=== PATIENT | female | born 1945 | race Caucasian/White ===

== ENCOUNTER 2021-04-10 14:05 | Emergency (ER) | payer MEDICARE, OTHER ==
--- NOTE | 2021-04-10 14:11 | ERPHSYRPT ---
- History of Present Illness Time Seen by Provider: 04/10/21 14:11 Source: patient, family Exam Limitations: no limitations Physician History: This is a 76-year-old white female with a history of hypertension, COPD and elevated cholesterol. Her primary care physician is Dr. Rivero. She has felt increasingly weak over the last several days. A couple weeks ago patient was treated for vaginal yeast infection. She is now having some dysuria symptoms. She has no abdominal pain. She has had no nausea vomiting or diarrhea. She has no chest pain and she is not short of breath. Her primary complaint is the dysuria and the weakness. She has not had fevers or chills. She has not had any exposure to any individuals with similar symptoms or with viral illness. Timing/Duration: day(s) (Few) Severity: moderate Associated Symptoms: weakness, No nausea, No vomiting, No abdominal pain, No s hortness of breath, No cough, No chest pain, No fever Allergies/Adverse Reactions: No Known Drug Allergies Allergy (Unverified 10/28/13 11:54) Home Medications: Albuterol/Ipratropium cc [Combivent Inhaler COMMON CANISTER] 1 puff IH QID 1 12/29/12 [History] Aspirin EC 81 mg [Ecotrin 81 mg] 81 mg PO DAILY 10/28/13 [History] Benazepril/Hydrochlorothiazide [Benazepril-Hctz 10-12.5 mg Tab] 1 each PO DAILY 10/28/13 [History] Budesonide/Formoterol Fumarate [Symbicort 160-4.5 Mcg Inhaler] 6 gm IH BID 10/28/13 [History] Fluoxetine HCl 20 mg [Prozac 20 MG] 20 mg PO DAILY 10/28/13 [History] Metoprolol Tartrate 25 mg [Lopressor 25MG Tab] 25 tab PO DAILY 10/28/13 [History] Hx Tetanus, Diphtheria Vaccination/Date Given: Yes Hx Influenza Vaccination/Date Given: Yes (2012) Hx Pneumococcal Vaccination/Date Given: Yes (2009) Travel Risk - International Travel Have you traveled outside of the country in past 3 weeks: No - Coronavirus Screening Are you exhibiting any of the following symptoms?: No Close contact with a COVID-19 positive Pt in past 14-21 Days: No - Review of Systems Constitutional: Weakness, No Fever, No Chills Eyes: No Symptoms Ears, Nose, & Throat: No Symptoms Respiratory: No Symptoms Cardiac: No Symptoms Abdominal/Gastrointestinal: No Symptoms Genitourinary Symptoms: Dysuria Musculoskeletal: No Symptoms Skin: No Symptoms Neurological: No Symptoms Psychological: No Symptoms Endocrine: No Symptoms Hematologic/Lymphatic: No Symptoms Immunological/Allergic: No Symptoms All Other Systems: Reviewed and Negative - Past Medical History Pertinent Past Medical History: Yes Neurological History: No Pertinent History ENT History: No Pertinent History Cardiac History: High Cholesterol, Hypertension Respiratory History: COPD Endocrine Medical History: No Pertinent History Musculoskeletal History: Arthritis, Osteoporosis GI Medical History: No Pertinent History History: No Pertinent History Psycho-Social History: Depression Female Reproductive Disorders: No Pertinent History - Past Surgical History Past Surgical History: Yes Neuro Surgical History: No Pertinent History Cardiac: No Pertinent History Respiratory: No Pertinent History Gastrointestinal: Cholecystectomy Genitourinary: No Pertinent History Musculoskeletal: Orthopedic Surgery Female Surgical History: No Pertinent History - Social History Smoking Status: Former smoker Exposure to second hand smoke: No Drug Use: none - Nursing Vital Signs Nursing Vital Signs: Initial Vital Signs Temperature 97.8 F 04/10/21 14:11 Pulse Rate 90 04/10/21 14:11 Blood Pressure 177/90 04/10/21 14:11 O2 Sat by Pulse Oximetry 93 L 04/10/21 14:11 Pain Scale Pain Intensity 0 - Physical Exam General Appearance: no apparent distress, alert, anxiety Eye Exam: PERRL/EOMI, eyes nml inspection Ears, Nose, Throat Exam: normal ENT inspection, moist mucous membranes Neck Exam: normal inspection, non-tender, supple, full range of motion Respiratory Exam: normal breath sounds, lungs clear, airway intact, No chest tenderness, No respiratory distress Cardiovascular Exam: regular rate/rhythm, normal heart sounds, normal peripheral pulses Gastrointestinal/Abdomen Exam: soft, normal bowel sounds, No tenderness Pelvic Exam: not done Rectal Exam: not done Back Exam: normal inspection, normal range of motion, No CVA tenderness, No vertebral tenderness Extremity Exam: normal inspection, normal range of motion, pelvis stable Neurologic Exam: alert, oriented x 3, cooperative, 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 There is no comparison EKG available.) Ordered Tests: Active Orders 24 hr Category Date Time Status EKG-ER Only STAT Care 04/10/21 14:50 Active IV Insertion STAT Care 04/10/21 14:50 Active ABDOMEN AND PELVIS W/0 CONTRAS [CT] Stat Exams 04/10/21 17:11 Taken CBC W DIFF Stat Lab 04/10/21 14:55 Completed CMP Stat Lab 04/10/21 14:55 Completed Lactic Acid Stat Lab 04/10/21 15:36 Completed TROPONIN Q3H Lab 04/10/21 14:55 Completed TROPONIN Q3H Lab 04/10/21 18:00 Ordered TROPONIN Q3H Lab 04/10/21 21:00 Ordered TROPONIN Q3H Lab 04/11/21 00:00 Ordered TROPONIN Q3H Lab 04/11/21 03:00 Ordered UA W/RFX UR CULTURE Stat Lab 04/10/21 14:54 Completed Medication Summary Discontinued Medications Generic Name Dose Route Start Last Admin Trade Name Freq PRN Reason Stop Dose Admin Sodium Chloride 1,000 mls @ 999 mls/hr 04/10/21 14:50 04/10/21 16:15 Sodium Chloride 0.9% 1000 Ml IV 04/10/21 15:50 Infused .Q1H1M STA Infusion Sodium Chloride Confirm 04/10/21 14:54 Sodium Chloride 0.9% 1000 Ml Administered 04/10/21 14:55 Dose 1,000 mls @ ud .ROUTE .STK-MED ONE Ondansetron HCl 4 mg 04/10/21 16:10 04/10/21 16:13 Zofran 4 Mg/2 Ml Vial IV 04/10/21 16:11 4 mg STAT ONE Administration Ondansetron HCl Confirm 04/10/21 16:11 Zofran 4 Mg/2 Ml Vial Administered 04/10/21 16:12 Dose 4 mg .ROUTE .STK-MED ONE Pantoprazole Sodium 40 mg 04/10/21 16:10 04/10/21 16:14 Protonix 40 Mg Iv IV 04/10/21 16:11 40 mg STAT ONE Administration Pantoprazole Sodium Confirm 04/10/21 16:11 Protonix 40 Mg Iv Administered 04/10/21 16:12 Dose 40 mg IV .STK-MED ONE Lab/Rad Data: Laboratory Result Diagrams 04/10/21 14:55 04/10/21 14:55 Laboratory Results 04/10/21 04/10/21 04/10/21 Range/Units 15:36 14:55 14:55 WBC (4.0-10.5) K/mm3 RBC (4.1-5.4) M/mm3 Hgb (12.0-16.0) gm/dl Hct (35-47) % MCV (78-100) fl MCH (26-32) pg MCHC (32-36) g/dl RDW (11.5-14.0) % Plt Count (150-450) K/mm3 MPV (7.5-11.0) fl Gran % (36.0-66.0) % Eos # (Auto) (0-0.5) Absolute Lymphs (auto) (1.0-4.6) Absolute Monos (auto) (0.0-1.3) Lymphocytes % (24.0-44.0) % Monocytes % (0.0-12.0) % Eosinophils % (0.00-5.0) % Basophils % (0.0-0.4) % Absolute Granulocytes (1.4-6.9) Basophils # (0-0.4) Sodium 133 L (137-145) mmol/L Potassium 4.0 (3.5-5.1) mmol/L Chloride 96 L (98-107) mmol/L Carbon Dioxide 26 (22-30) mmol/L Anion Gap 14.8 (5-15) MEQ/L BUN 9 (7-17) mg/dL Creatinine 0.60 (0.52-1.04) mg/dL Estimated GFR > 60.0 ML/MIN Glucose 96 (74-106) mg/dL Lactic Acid 1.1 (0.4-2.0) Calcium 9.2 (8.4-10.2) mg/dL Total Bilirubin 0.70 (0.2-1.3) mg/dL AST 25 (14-36) U/L ALT 22 (0-35) U/L Alkaline Phosphatase 64 (38-126) U/L Troponin I < 0.012 (0.000-0.034) ng/mL Serum Total Protein 8.3 H (6.3-8.2) g/dL Albumin 4.6 (3.5-5.0) g/dL Urine Color (YELLOW) Urine Appearance (CLEAR) Urine pH (5-6) Ur Specific [place] (1.005-1.025) Urine Protein (Negative) Urine Ketones (NEGATIVE) Urine Blood (0-5) Jaime/ul Urine Nitrite (NEGATIVE) Urine Bilirubin (NEGATIVE) Urine Urobilinogen (0-1) mg/dL Ur Leukocyte Esterase (NEGATIVE) Urine WBC (Auto) (0-5) /HPF Urine RBC (Auto) (0-2) /HPF U Epithel Cells (Auto) (FEW) /HPF Urine Bacteria (Auto) (NEGATIVE) /HPF Urine Mucus (Auto) (NEGATIVE) /HPF Urine Culture Reflexed (NO) Urine Glucose (NEGATIVE) mg/dL 04/10/21 04/10/21 Range/Units 14:55 14:54 WBC 6.5 (4.0-10.5) K/mm3 RBC 4.38 (4.1-5.4) M/mm3 Hgb 13.3 (12.0-16.0) gm/dl Hct 40.8 (35-47) % MCV 93.2 (78-100) fl MCH 30.4 (26-32) pg MCHC 32.6 (32-36) g/dl RDW 12.6 (11.5-14.0) % Plt Count 262 (150-450) K/mm3 MPV 10.1 (7.5-11.0) fl Gran % 65.6 (36.0-66.0) % Eos # (Auto) 0.11 (0-0.5) Absolute Lymphs (auto) 1.44 (1.0-4.6) Absolute Monos (auto) 0.66 (0.0-1.3) Lymphocytes % 22.2 L (24.0-44.0) % Monocytes % 10.2 (0.0-12.0) % Eosinophils % 1.7 (0.00-5.0) % Basophils % 0.3 (0.0-0.4) % Absolute Granulocytes 4.27 (1.4-6.9) Basophils # 0.02 (0-0.4) Sodium (137-145) mmol/L Potassium (3.5-5.1) mmol/L Chloride (98-107) mmol/L Carbon Dioxide (22-30) mmol/L Anion Gap (5-15) MEQ/L BUN (7-17) mg/dL Creatinine (0.52-1.04) mg/dL Estimated GFR ML/MIN Glucose (74-106) mg/dL Lactic Acid (0.4-2.0) Calcium (8.4-10.2) mg/dL Total Bilirubin (0.2-1.3) mg/dL AST (14-36) U/L ALT (0-35) U/L Alkaline Phosphatase (38-126) U/L Troponin I (0.000-0.034) ng/mL Serum Total Protein (6.3-8.2) g/dL Albumin (3.5-5.0) g/dL Urine Color YELLOW (YELLOW) Urine Appearance CLEAR (CLEAR) Urine pH 6.0 (5-6) Ur Specific [place] 1.011 (1.005-1.025) Urine Protein NEGATIVE (Negative) Urine Ketones NEGATIVE (NEGATIVE) Urine Blood LARGE (0-5) Jaime/ul Urine Nitrite NEGATIVE (NEGATIVE) Urine Bilirubin NEGATIVE (NEGATIVE) Urine Urobilinogen NEGATIVE (0-1) mg/dL Ur Leukocyte Esterase NEGATIVE (NEGATIVE) Urine WBC (Auto) 0-2 (0-5) /HPF Urine RBC (Auto) 16-25 (0-2) /HPF U Epithel Cells (Auto) RARE (FEW) /HPF Urine Bacteria (Auto) RARE (NEGATIVE) /HPF Urine Mucus (Auto) SLIGHT (NEGATIVE) /HPF Urine Culture Reflexed NO (NO) Urine Glucose NEGATIVE (NEGATIVE) mg/dL - Progress Progress Note: 04/10/21 18:38 CAT scan of the abdomen pelvis shows a 1.7 cm left renal cyst and a 3.0 cm distal abdominal aortic aneurysm. Remaining of the CAT scan of the abdomen pelvis without contrast negative Counseled pt/family regarding: lab results, diagnosis, need for follow-up, rad results - Departure Departure Disposition: Home Clinical Impression: Weakness, Vaginal itching Condition: Stable Critical Care Time: No Referrals: CHADWICK RIVERO [Primary Care Provider] - Additional Instructions: Drink plenty of fluids. Follow-up with Dr. Rivero in his office tomorrow by phone to make arrangements for a follow-up appointment. Prescriptions: Ondansetron ODT 4 MG [Zofran Odt 4 mg] 4 mg PO Q6H PRN PRN #10 tab.rapdis PRN Reason: Vomiting
[2021-04-10] MEDS ORDERED: Sodium Chloride 0.9% 1000 ML 1,000 ML IV STA (14:50)
[2021-04-10] MEDS ORDERED: Sodium Chloride 0.9% 1000 ML 1,000 ML ONE (14:54)
[2021-04-10 15:06] LABS: Absolute Neutrophil Ct (ANC) 4.27 (1.4-6.9); BASOPHIL % 0.3 % (0.0-0.4); Basophil (Absolute #) 0.02 (0-0.4); Eosinophil % 1.7 % (0.00-5.0); Eosinophil (Absolute #) 0.11 (0-0.5); Hematocrit 40.8 % (35-47); Hemoglobin 13.3 gm/dl (12.0-16.0); Lymphocyte (Absolute #) 1.44 (1.0-4.6); Lymphocytes % 22.2 % (24.0-44.0); Mean Cell Volume 93.2 fl (78-100); Mean Corpuscular Hemoglobin 30.4 pg (26-32); Mean Corpuscular Hgb Concent. 32.6 g/dl (32-36); Mean Platelet Volume 10.1 fl (7.5-11.0); Monocyte (Absolute #) 0.66 (0.0-1.3); Monocytes % 10.2 % (0.0-12.0); Neutrophil % 65.6 % (36.0-66.0); Platelet Count 262 K/mm3 (150-450); Red Blood Count 4.38 M/mm3 (4.1-5.4); Red Cell Distribution Width 12.6 % (11.5-14.0); White Blood Count 6.5 K/mm3 (4.0-10.5)
[2021-04-10 15:08] LABS: Appearance CLEAR (CLEAR); Bacteria RARE /HPF (NEGATIVE); Bilirubin NEGATIVE (NEGATIVE); Blood LARGE Ery/ul (0-5); Epithelial Cells RARE /HPF (FEW); Glucose NEGATIVE (NEGATIVE); Ketones NEGATIVE (NEGATIVE); Leukocyte Esterase NEGATIVE (NEGATIVE); Mucus SLIGHT /HPF (NEGATIVE); Nitrite NEGATIVE (NEGATIVE); Protein,Urine Dip NEGATIVE (Negative); Specific Gravity 1.011 (1.005-1.025); Urobilinogen NEGATIVE mg/dL (0-1); WBC 0-2 /HPF (0-5)
[2021-04-10 15:16] LABS: ALBUMIN 4.6 g/dL (3.5-5.0); ALKALINE PHOSPHATASE 64 U/L (38-126); ANION GAP 14.8 MEQ/L (5-15); BLOOD UREA NITROGEN 9 mg/dL (7-17); CHLORIDE 96 mmol/L (98-107); Calcium 9.2 mg/dL (8.4-10.2); Carbon Dioxide 26 mmol/L (22-30); EST GLOMERULAR FILTRATION RATE > 60.0 ML/MIN; Glucose 96 mg/dL (74-106); SGOT/AST 25 U/L (14-36); SGPT/ALT 22 U/L (0-35); SODIUM 133 mmol/L (137-145); Total Protein 8.3 g/dL (6.3-8.2)
[2021-04-10] MEDS ORDERED: PROTONIX 40 MG IV IV ONE ×2 (16:10→16:11)
[2021-04-10] MEDS ORDERED: Zofran 4 MG/2 ML VIAL IV ONE (16:10)
[2021-04-10] MEDS ORDERED: Zofran 4 MG/2 ML VIAL ONE (16:11)
[2021-04-10 18:53] VITALS: BP 149/63; PULSE 68; O2SAT 94
--- NOTE | 2021-04-11 08:56 | XRAY ---
Indication: Hematuria. Pelvic pressure. Multiple contiguous axial images obtained through the abdomen and pelvis without contrast. Comparison: None Lung bases demonstrates minimal fibrosis/scarring and tiny left posterior gutter calcified granuloma. No infiltrate or effusion. Heart is not enlarged. Noncontrasted stomach and bowel loops appear nonobstructed. Normal appendix. Previous cholecystectomy. No free fluid/air. Left mid kidney demonstrates 1.7 cm cortical cyst. Remaining liver, pancreas, spleen, adrenal glands, kidneys, ureters, bladder, and uterus unremarkable for noncontrast exam. Moderate scattered vascular calcifications with 3 cm fusiform distal AAA. Osseous structures intact with mild osteopenia and mild/moderate degenerative changes throughout the thoracolumbar spine. No ventral or inguinal hernias. Impression: 1. 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 2. Left renal cyst. 3. Remaining CT abdomen/pelvis without contrast exam is negative.
== END 2021-04-10 18:55 | disposition home or self-care (01) ==
LOC: ED 14:05
DX: R53.1 Weakness (principal); L29.8 Other pruritus
CPT/HCPCS: 36000; 36415; 74176; 80053; 81001; 83605; 84484; 85025; 93005; 96360; 96374; 96375; 99284; J2405

== ENCOUNTER 2022-07-07 07:36 | Emergency (ER) | payer MEDICARE, OTHER ==
[2022-07-07 08:15] VITALS: O2SAT 96
[2022-07-07 08:26] LABS: Absolute Neutrophil Ct (ANC) 5.21 x10^3/uL (1.4-6.9); Basophil (Absolute #) 0.02 x10^3/uL (0-0.4); Eosinophil % 0.7 % (0.00-5.0); Eosinophil (Absolute #) 0.05 x10^3/uL (0-0.5); Hematocrit 40.1 % (35-47); Hemoglobin 13.4 g/dL (12.0-16.0); Lymphocyte (Absolute #) 0.84 x10^3/uL (1.0-4.6); Mean Cell Volume 92.2 fL (78-100); Mean Corpuscular Hemoglobin 30.8 pg (26-32); Mean Corpuscular Hgb Concent. 33.4 g/dL (32-36); Mean Platelet Volume 9.5 fL (7.5-11.0); Monocyte (Absolute #) 0.84 x10^3/uL (0.0-1.3); Neutrophil % 74.7 % (36.0-66.0); Platelet Count 214 x10^3/uL (150-450); Red Blood Count 4.35 x10^6/uL (4.1-5.4); Red Cell Distribution Width 12.6 % (11.5-14.0)
--- NOTE | 2022-07-07 08:26 | ERPHSYRPT ---
- History of Present Illness Source: patient Exam Limitations: no limitations Patient Subjective Stated Complaint: C/O cough with SOB upon exertion since yesterday Triage Nursing Assessment: Patient ambulated back to ED with some SOB noted with exertion. Patient is alert and oriented. No cough noted during assessment. Patient skin is warm and dry. Lungs clear and slightly diminished in the bases. Physician History: 77 yo wf w dyspnea x 2days. Pt has a mildly productive cough w a h/o COPD. She smoked 1ppd until 10 years ago and currently vapes. Dyspnea is mainly upon exertion. She denies chest pain/fever/coryza/N/V/D/melena/hematochezia. Timing/Duration: other (2 days) Severity of Dyspnea-Max: moderate Severity of Dyspnea-Current: mild Possible Cause: occasional episodes Modifying Factors: Improves With: activity Associated Symptoms: cough, productive cough, No chest pain/discomfort, No edema, No fever, No insomnia, No loss of appetite, No lightheadedness, No wheezing, No weakness, No ankle swelling, No chills, No hemoptysis, No calf pain, No dizziness, No heaviness, No heart racing, No lightheadedness, No leg swelling, No muscle spasms feet, No muscle spasms hands, No painful breathing, No sweating, No tightness, No tingling face Allergies/Adverse Reactions: No Known Drug Allergies Allergy (Verified 07/07/22 08:02) Home Medications: Albuterol/Ipratropium cc [Combivent Inhaler COMMON CANISTER] 1 puff IH QID 10/28/13 [History] Aspirin EC 81 mg [Ecotrin 81 mg] 81 mg PO DAILY 10/28/13 [History] Benazepril/Hydrochlorothiazide [Benazepril-Hctz 10-12.5 mg Tab] 1 each PO DAILY 10/28/13 [History] Budesonide/Formoterol Fumarate [Symbicort 160-4.5 Mcg Inhaler] 6 gm IH BID 10/28/13 [History] Fluoxetine HCl 20 mg [Prozac 20 MG] 20 mg PO DAILY 10/28/13 [History] Metoprolol Tartrate 25 mg [Lopressor 25MG Tab] 25 tab PO DAILY 10/28/13 [History] Hx Tetanus, Diphtheria Vaccination/Date Given: Yes Hx Influenza Vaccination/Date Given: No Hx Pneumococcal Vaccination/Date Given: No Immunizations Up to Date: Yes Travel Risk - International Travel Have you traveled outside of the country in past 3 weeks: No - Coronavirus Screening Are you exhibiting any of the following symptoms?: Yes Symptoms: Cough: New Onset, Shortness of Breath, Headaches/Body Aches/Fatigue Close contact with a COVID-19 positive Pt in past 14-21 Days: No - Vaccine Status Have you recieved a Covid-19 vaccination: Yes 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: [employer] - Vaccination Dates Date of 2cond Vaccination (if applicable): 03/03/21 - Review of Systems Constitutional: No Symptoms Eyes: No Symptoms Ears, Nose, & Throat: No Symptoms Respiratory: No Symptoms, Cough, Dyspnea on Exertion (BACON) Cardiac: No Symptoms Abdominal/Gastrointestinal: No Symptoms Genitourinary Symptoms: No Symptoms Musculoskeletal: No Symptoms Skin: No Symptoms Neurological: No Symptoms Psychological: No Symptoms Endocrine: No Symptoms Hematologic/Lymphatic: No Symptoms Immunological/Allergic: No Symptoms - Past Medical History Pertinent Past Medical History: Yes Neurological History: No Pertinent History ENT History: No Pertinent History Cardiac History: High Cholesterol, Hypertension Respiratory History: COPD Endocrine Medical History: No Pertinent History Musculoskeletal History: Arthritis, Osteoporosis GI Medical History: No Pertinent History History: No Pertinent History Psycho-Social History: Depression Female Reproductive Disorders: No Pertinent History - Past Surgical History Past Surgical History: Yes Neuro Surgical History: No Pertinent History Cardiac: No Pertinent History Respiratory: No Pertinent History Gastrointestinal: Cholecystectomy Genitourinary: No Pertinent History Musculoskeletal: Orthopedic Surgery Female Surgical History: No Pertinent History - Social History Smoking Status: Former smoker Exposure to second hand smoke: No Drug Use: none Patient Lives Alone: No (Daughter) Significant Family History: no pertinent family hx - Nursing Vital Signs Nursing Vital Signs: Initial Vital Signs Temperature 98.6 F 07/07/22 07:38 Pulse Rate 84 07/07/22 07:38 Respiratory Rate 17 07/07/22 07:38 Blood Pressure 157/93 07/07/22 07:38 O2 Sat by Pulse Oximetry 96 07/07/22 07:38 Pain Scale Pain Intensity 0 Hypertensive - Physical Exam General Appearance: no apparent distress Eye Exam: PERRL/EOMI, eyes nml inspection Ears, Nose, Throat Exam: hearing grossly normal, normal ENT inspection, normal pharynx Neck Exam: normal inspection, non-tender, supple, full range of motion, No Brudzinski, No Kernig's, No meningismus, No carotid bruit Respiratory Exam: lungs clear, airway intact, crackles/rales (Faint rales at bases B) Cardiovascular/Chest Exam: normal heart sounds, regular rate/rhythm, normal peripheral pulses, No murmur Abdominal/Gastrointestinal Exam: soft, normal bowel sounds, No tenderness Extremity Exam: non-tender, normal range of motion, normal inspection, normal capillary refill, No no calf tenderness Peripheral Pulses Exam: carotid (R): 2+, carotid (L): 2+ Neurologic Exam: alert, oriented x 3, cooperative, 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, normal mood/affect, nml cerebellar function, nml station & gait, sensation nml, No motor deficits, No sensory deficit Skin Exam: normal color, warm, dry, No rash Lymphatic Exam: No adenopathy SpO2 Interpretation: normal SpO2: 96 O2 Delivery: Room Air - Course Nursing assessment & vital signs reviewed: Yes EKG Interpreted by Me: RATE (NSR/Rate75/Poor R wave progression V2-V3/No acute ST changes) Ordered Tests: Active Orders 24 hr Category Date Time Status EKG-ER Only STAT Care 07/07/22 08:14 Completed CHEST 1 VIEW (PORTABLE) Stat Exams 07/07/22 08:30 Taken CBC W DIFF Stat Lab 07/07/22 08:14 Completed CMP Stat Lab 07/07/22 08:28 Completed NT PRO BNP Stat Lab 07/07/22 08:28 Completed PROTIME WITH INR Stat Lab 07/07/22 08:28 Completed PTT Stat Lab 07/07/22 08:28 Completed TROPONIN Q4H Lab 07/07/22 08:28 Completed Lab/Rad Data: Laboratory Result Diagrams 07/07/22 08:14 07/07/22 08:28 Laboratory Results 07/07/22 07/07/22 07/07/22 Range/Units 08:28 08:28 08:28 WBC (4.0-10.5) x10^3/uL RBC (4.1-5.4) x10^6/uL Hgb (12.0-16.0) g/dL Hct (35-47) % MCV (78-100) fL MCH (26-32) pg MCHC (32-36) g/dL RDW (11.5-14.0) % Plt Count (150-450) x10^3/uL MPV (7.5-11.0) fL Gran % (36.0-66.0) % Immature Gran % (Auto) (0.00-0.4) % Nucleat RBC Rel Count (0.00-0.1) % Eos # (Auto) (0-0.5) x10^3/uL Immature Gran # (Auto) (0.00-0.03) x10^3u/L Absolute Lymphs (auto) (1.0-4.6) x10^3/uL Absolute Monos (auto) (0.0-1.3) x10^3/uL Absolute Nucleated RBC (0.00-0.01) x10^3u/L Lymphocytes % (24.0-44.0) % Monocytes % (0.0-12.0) % Eosinophils % (0.00-5.0) % Basophils % (0.0-0.4) % Absolute Granulocytes (1.4-6.9) x10^3/uL Basophils # (0-0.4) x10^3/uL PT 10.9 (9.4-12.5) SECONDS INR 1.03 (0.8-3.0) APTT 28.8 (25.1-36.5) SECONDS Sodium 131 L (137-145) mmol/L Potassium 4.1 (3.5-5.1) mmol/L Chloride 94 L (98-107) mmol/L Carbon Dioxide 27 (22-30) mmol/L Anion Gap 13.1 (5-15) MEQ/L BUN 11 (7-17) mg/dL Creatinine 0.61 (0.52-1.04) mg/dL Estimated GFR > 60.0 ML/MIN Glucose 119 H (74-106) mg/dL Calcium 9.4 (8.4-10.2) mg/dL Total Bilirubin 1.20 (0.2-1.3) mg/dL AST 27 (14-36) U/L ALT 20 (0-35) U/L Alkaline Phosphatase 73 (38-126) U/L Troponin I < 0.012 (0.000-0.034) ng/mL NT-Pro-B Natriuret Pep 289 (0-1800) pg/mL Serum Total Protein 8.4 H (6.3-8.2) g/dL Albumin 4.7 (3.5-5.0) g/dL Influenza Type A Ag (NEGATIVE) Influenza Type B Ag (NEGATIVE) RSV (PCR) (Negative) SARS-CoV-2 (PCR) (NEGATIVE) 07/07/22 07/07/22 Range/Units 08:28 08:14 WBC 7.0 (4.0-10.5) x10^3/uL RBC 4.35 (4.1-5.4) x10^6/uL Hgb 13.4 (12.0-16.0) g/dL Hct 40.1 (35-47) % MCV 92.2 (78-100) fL MCH 30.8 (26-32) pg MCHC 33.4 (32-36) g/dL RDW 12.6 (11.5-14.0) % Plt Count 214 (150-450) x10^3/uL MPV 9.5 (7.5-11.0) fL Gran % 74.7 H (36.0-66.0) % Immature Gran % (Auto) 0.3 (0.00-0.4) % Nucleat RBC Rel Count 0.0 (0.00-0.1) % Eos # (Auto) 0.05 (0-0.5) x10^3/uL Immature Gran # (Auto) 0.02 (0.00-0.03) x10^3u/L Absolute Lymphs (auto) 0.84 L (1.0-4.6) x10^3/uL Absolute Monos (auto) 0.84 (0.0-1.3) x10^3/uL Absolute Nucleated RBC 0.00 (0.00-0.01) x10^3u/L Lymphocytes % 12.0 L (24.0-44.0) % Monocytes % 12.0 (0.0-12.0) % Eosinophils % 0.7 (0.00-5.0) % Basophils % 0.3 (0.0-0.4) % Absolute Granulocytes 5.21 (1.4-6.9) x10^3/uL Basophils # 0.02 (0-0.4) x10^3/uL PT (9.4-12.5) SECONDS INR (0.8-3.0) APTT (25.1-36.5) SECONDS Sodium (137-145) mmol/L Potassium (3.5-5.1) mmol/L Chloride (98-107) mmol/L Carbon Dioxide (22-30) mmol/L Anion Gap (5-15) MEQ/L BUN (7-17) mg/dL Creatinine (0.52-1.04) mg/dL Estimated GFR ML/MIN Glucose (74-106) mg/dL Calcium (8.4-10.2) mg/dL Total Bilirubin (0.2-1.3) mg/dL AST (14-36) U/L ALT (0-35) U/L Alkaline Phosphatase (38-126) U/L Troponin I (0.000-0.034) ng/mL NT-Pro-B Natriuret Pep (0-1800) pg/mL Serum Total Protein (6.3-8.2) g/dL Albumin (3.5-5.0) g/dL Influenza Type A Ag NEGATIVE (NEGATIVE) Influenza Type B Ag NEGATIVE (NEGATIVE) RSV (PCR) NEGATIVE (Negative) SARS-CoV-2 (PCR) POSITIVE A (NEGATIVE) - Progress Air Movement: good Counseled pt/family regarding: lab results, diagnosis, need for follow-up, rad results - Departure Departure Disposition: Home Clinical Impression: COVID-19 Condition: Stable Critical Care Time: No Referrals: CHADWICK WYMAN [Primary Care Provider] - Follow up/PCP as directed Instructions: Cough, Adult (DC), COVID-19 (DC) Additional Instructions: Quarantine for 5 days Vitamin D 5000units a day Start Paxlovid for 5 days Get a pulse oximeter and monitor oxygen saturation 2-3 times a day Return to ER for persistent oxygen saturation less than 90% Follow up with your family MD in 2-3 days Decadron once a day for 5 days Prescriptions: Dexamethasone 4 mg [Decadron 4 MG] 4 mg PO DAILY #5 tablet Nirmatrelvir/Ritonavir [Paxlovid 300-100 mg Pack (Eua)] 1 each PO BID 5 Days #30
[2022-07-07 08:39] LABS: INR 1.03 (0.8-3.0); PROTIME 10.9 SECONDS (9.4-12.5); PTT 28.8 SECONDS (25.1-36.5)
[2022-07-07 08:46] LABS: ALBUMIN 4.7 g/dL (3.5-5.0); ALKALINE PHOSPHATASE 73 U/L (38-126); ANION GAP 13.1 MEQ/L (5-15); BLOOD UREA NITROGEN 11 mg/dL (7-17); CHLORIDE 94 mmol/L (98-107); Calcium 9.4 mg/dL (8.4-10.2); Carbon Dioxide 27 mmol/L (22-30); Creatinine 1 0.61 mg/dL (0.52-1.04); EST GLOMERULAR FILTRATION RATE > 60.0 ML/MIN; Glucose 119 mg/dL (74-106); NT PRO BNP 289 pg/mL (0-1800); Potassium 4.1 mmol/L (3.5-5.1); SGOT/AST 27 U/L (14-36); SGPT/ALT 20 U/L (0-35); SODIUM 131 mmol/L (137-145); Total Protein 8.4 g/dL (6.3-8.2)
[2022-07-07 08:59] LABS: INFLUENZA A NEGATIVE (NEGATIVE); INFLUENZA B NEGATIVE (NEGATIVE); RESPIRATORY SYNCTIAL VIRUS NEGATIVE (Negative)
[2022-07-07 09:06] LABS: SARS-CoV-2 Xpert Express POSITIVE (NEGATIVE)
[2022-07-07 09:11] VITALS: BP 159/72; PULSE 75
--- NOTE | 2022-07-07 19:33 | XRAY ---
Indication: Cough. Dyspnea. History of COPD. Comparison: December 28, 2010 Portable chest remains hyperinflated and clear with incidental tiny calcified granulomas. Heart now borderline enlarged with tortuous descending aorta. Bony thorax intact with osteopenia, degenerative changes, and old left rib fractures. Impression: Nonacute hyperinflated chest with chronic features.
== END 2022-07-07 09:20 | disposition home or self-care (01) ==
LOC: ED 07:36
DX: U07.1 COVID-19 (principal); R06.00 Dyspnea, unspecified; R05.9 Cough, unspecified; E78.5 Hyperlipidemia, unspecified; I10 Essential (primary) hypertension; J44.9 Chronic obstructive pulmonary disease, unspecified; Z79.899 Other long term (current) drug therapy; Z79.52 Long term (current) use of systemic steroids
CPT/HCPCS: 0241U; 36415; 71045; 80053; 83880; 84484; 85025; 85610; 85730; 93005; 99283

== ENCOUNTER 2025-10-07 21:44 | Emergency (ER) | payer MEDICARE, OTHER ==
[2025-10-07 21:58] VITALS: TEMP 97.4; O2SAT 96
[2025-10-07] MEDS ORDERED: DELTASONE 20 MG ONE (23:58)
[2025-10-07] MEDS: DELTASONE 20 MG PO ONE (23:58)
[2025-10-08] MEDS ORDERED: DUONEB 0.5-3 MG/3 ml Neb IH ONE (00:04)
[2025-10-08] MEDS: DUONEB 0.5-3 MG/3 ml Neb IH ONE (00:05)
[2025-10-08 00:08] VITALS: BP 126/73
[2025-10-08 00:10] VITALS: PULSE 67; RESP 16
[2025-10-08 01:04] LABS: INFLUENZA A NEGATIVE (NEGATIVE); INFLUENZA B NEGATIVE (NEGATIVE); RESPIRATORY SYNCTIAL VIRUS NEGATIVE (NEGATIVE); SARS-CoV-2 Xpert Express NEGATIVE (NEGATIVE)
--- NOTE | 2025-10-08 05:08 | ERPHSYRPT ---
- History of Present Illness Patient Subjective Stated Complaint: c/o cough and shortness of breath Triage Nursing Assessment: patient brought to ED by daughter with c/o cough and SOB. patient denies pain, has a hx of COPD, daily vapor, patient gait steady wtih cane, lung sounds distant upon expiration, patient afebrile, hypertensive, patient doesn't appear to be in any distress at this time Physician History: 80-year-old female history of COPD presenting with increasing shortness of breath for the last few days. Per patient's daughter, she likely caught a cold or flu a week ago and has slowly been recovering. Predominately noticed cough and congestion, that is now significantly improved. However new shortness of breath for the last 2 to 3 days. normally able to walk around her house comfortably. However now difficulty walking across 1 room without having to stop and catch her breath. Has nebulizer treatments at home, but is not using them. No fevers, no sputum production. Normal appetite, no nausea or vomiting. Functionally independent at home. Allergies/Adverse Reactions: No Known Drug Allergies Allergy (Verified 10/07/25 21:49) Home Medications: Albuterol/Ipratropium cc [Combivent Inhaler COMMON CANISTER] 1 puff IH QID 10/28/13 [History] Aspirin EC 81 mg [Ecotrin 81 mg] 81 mg PO DAILY 10/28/13 [History] Benazepril/Hydrochlorothiazide [Benazepril-Hctz 10-12.5 mg Tab] 1 each PO DAILY 10/28/13 [History] Fluoxetine HCl 20 mg [Prozac 20 MG] 20 mg PO DAILY 10/28/13 [History] Metoprolol Tartrate 25 mg [Lopressor 25MG Tab] 25 tab PO DAILY 10/28/13 [History] Budesonide/Glycopyr/Formoterol [Breztri Aerosphere Inhaler] 2 puffs IH BID 10/07/25 [History] Hx Tetanus, Diphtheria Vaccination/Date Given: No Hx Influenza Vaccination/Date Given: Yes Hx Pneumococcal Vaccination/Date Given: No Travel Risk - International Travel Have you traveled outside of the country in past 3 weeks: No - Emerging Infectious Disease Are you exhibiting symptoms associated with any current EIDs: Yes Symptoms: Cough: New Onset, Shortness of Breath - Past Medical History Pertinent Past Medical History: Yes Neurological History: No Pertinent History ENT History: No Pertinent History Cardiac History: High Cholesterol, Hypertension Respiratory History: COPD Endocrine Medical History: No Pertinent History Musculoskeletal History: Arthritis, Osteoporosis GI Medical History: No Pertinent History History: No Pertinent History Psycho-Social History: Depression Female Reproductive Disorders: No Pertinent History - Past Surgical History Past Surgical History: Yes Neuro Surgical History: No Pertinent History Cardiac: No Pertinent History Respiratory: No Pertinent History Gastrointestinal: Cholecystectomy Genitourinary: No Pertinent History Musculoskeletal: Orthopedic Surgery Female Surgical History: No Pertinent History Significant Family History: no pertinent family hx - Social History Smoking Status: Former smoker Exposure to second hand smoke: No Drug Use: none - Social Determinants of Health Will the patient participate in the screening: Yes Do you worry about a steady place to live?: No Do you have any problems with any of the following?: No known problems In the past 12 months,have you had to go without utilities?: No Transportation Issues: No Has anyone in your support network made you feel unsafe?: No Have you or anyone in your house had to go w/o enough food: No - Nursing Vital Signs Nursing Vital Signs: Initial Vital Signs Temperature 97.4 F 10/07/25 21:50 Pulse Rate 89 10/07/25 21:50 Respiratory Rate 20 10/07/25 21:50 O2 Sat by Pulse Oximetry 96 10/07/25 21:50 Pain Scale Pain Intensity 0 - Physical Exam General Appearance: no apparent distress Ears, Nose, Throat Exam: normal ENT inspection Respiratory Exam: diminished breath sounds, wheezing, No crackles/rales, No rhonchi Cardiovascular/Chest Exam: normal heart sounds, regular rate/rhythm Abdominal/Gastrointestinal Exam: soft, No tenderness, No distention Extremity Exam: No pedal edema SpO2 Interpretation: normal SpO2: 96 Ordered Tests: Active Orders 24 hr Category Date Time Status CHEST 1 VIEW (PORTABLE) Stat Exams 10/07/25 23:16 Taken Respiratory Therapy Assessment DAILY RT 10/08/25 00:09 Completed Medication Summary Discontinued Medications Generic Name Dose Route Start Last Admin Trade Name Freq PRN Reason Stop Dose Admin Albuterol/Ipratropium 3 ml 10/07/25 23:55 10/08/25 00:05 Ipratropium/Albuterol Sulfate 3 Ml Ampul.Neb IH 10/07/25 23:56 3 ml STAT ONE Administration Albuterol/Ipratropium Confirm 10/08/25 00:04 Ipratropium/Albuterol Sulfate 3 Ml Ampul.Neb Administered 10/08/25 00:05 Dose 3 ml IH .STK-MED ONE Prednisone 60 mg 10/07/25 23:55 10/07/25 23:58 Prednisone 20 Mg Tablet PO 10/07/25 23:56 60 mg STAT ONE Administration Prednisone Confirm 10/07/25 23:58 Prednisone 20 Mg Tablet Administered 10/07/25 23:59 Dose 60 mg .ROUTE .STK-MED ONE Lab/Rad Data: Laboratory Results 10/07/25 Range/Units 00:24 Influenza Type A Ag NEGATIVE (NEGATIVE) Influenza Type B Ag NEGATIVE (NEGATIVE) RSV (PCR) NEGATIVE (NEGATIVE) SARS-CoV-2 (PCR) NEGATIVE (NEGATIVE) - Progress Progress Note: 10/08/25 05:08 80-year-old female with history of COPD, no oxygen requirement at baseline, presenting with worsening shortness of breath in the setting of a remote viral illness. Symptoms most consistent with mild COPD exacerbation. Reassuring vital signs, no hypoxia, no new oxygen requirement. Chest x-ray grossly similar to prior. No focal consolidations, doubt pneumonia. Possible recent viral URI, however minimally symptomatic. Symptomatically significantly improved after course of DuoNeb, and dose of prednisone. Denies chest pain, nonischemic EKG, low suspicion for ACS. Doubt other infectious process such as UTI. No lower extremity edema, no tachycardia, symptoms less consistent with PE, and more likely COPD. Given the nature of presenting symptoms and possibility of emergent diagnosis, admission considered and not indicated at this time. Per my independent interpretation EKG shows sinus rhythm 73, lower voltage, no ST elevations or depressions. Labs and imaging reviewed and interpreted by me. Social determinants of health were reviewed. On reevaluation after DuoNeb, Wheeze resolved. Patient is symptomatically improved and would like to go home. Maintaining normal saturations. Will do 5- day course of prednisone as outpatient. Return precautions discussed. Patient will follow-up with her primary care doctor, additionally will start using her DuoNeb nebulizer that she already has at home. D/c'd w/ daughter. - Departure Clinical Impression: COPD exacerbation Condition: Good Critical Care Time: No Referrals: [facility] [Primary Care Provider, [facility]] - Follow up/PCP as directed Instructions: Chronic Obstructive Pulmonary Disease Additional Instructions: Thank you for coming to the Emergency Department today. You were evaluated for worsening COPD symptoms. Please continue to use your nebulizer at home 2-3 times a day. You were given a first dose of steroids here, please continue to take prednisone 40 mg for the next 5 days. If your symptoms get worse or you have new concerns, please seek medical attention again. Please follow up with your primary care doctor within 3 days. Please return to the Emergency Department if you experience: -Chest pain, shortness of breath or difficulty breathing, or fainting -Worsening fevers or chills -Worsening abdominal pain, persistent vomiting, new blood in your stool, inability to keep liquids down, or severe dehydration -Severe pain or progressively worsening pain that hinders your ability to perform daily activities -New severe or concerning symptoms Prescriptions: Prednisone 20 mg [Deltasone 20 mg] 40 mg PO DAILY 5 Days #10 tablet
--- NOTE | 2025-10-08 08:12 | XRAY ---
Indication: Short of breath. Comparison: July 07, 2022 Portable apical lordotic chest again hyperinflated with minimal right base subsegmental atelectasis/scarring and incidental tiny left upper lobe calcified granuloma. Heart remains borderline enlarged again with tortuous descending aorta. Bony thorax intact again with osteopenia, degenerative changes, and old left rib fractures. No new/acute findings.
== END 2025-10-08 01:15 | disposition home or self-care (01) ==
LOC: ED 21:44
DX: J44.1 Chronic obstructive pulmonary disease with (acute) exacerbation (principal); R06.02 Shortness of breath; I10 Essential (primary) hypertension; Z79.52 Long term (current) use of systemic steroids; Z79.899 Other long term (current) drug therapy